=== PATIENT | female | born 1975 | race Caucasian/White ===

== ENCOUNTER 2021-11-07 06:21 | Day surgery (SDC) | payer MEDICARE, MEDICAID, SELFPAY ==
[2021-11-01 13:20] VITALS: BMI 25.8
--- NOTE | 2021-11-04 08:10 | MHC.SHP ---
Pre-Procedural Eval Section A Date of Service: 11/04/21 The patient is an INPATIENT: No Changes since office visit: No Cold of Flu in the past 2 weeks, No New Medical Problems, No Changes in Medication and No Patient answered all questions The History & Physical has been completed within 30 days and I have reviewed it.: Yes Section B Chief Complaint: Age-related nuclear cataract, left eye Allergies: Allergies Allergy/AdvReac Type Severity Reaction Status Date / Time bee pollen [bee stings] Allergy Anaphylaxis Verified 11/01/21 13:16 latex Allergy Rash Verified 11/01/21 13:16 shellfish derived Allergy Anaphylaxis Verified 11/01/21 13:16 Plan Diagnosis/Plan: Unchanged I have reviewed the history and physical and performed a pertinent physical examination on my patient. No changes have occurred unless specified.
--- NOTE | 2021-11-04 11:30 | P.CONAN_ITS ---
Documented by User: Francesca Jauregui NP 11/04/21 11:31 HPI - Anesthesia Eval Consult details Narrative: 46yo F for Left Cataract Extraction IOL Insertion PCP cleared No previous cataract on record PMFSH Past Medical History Medical History Asthma Depression GERD (gastroesophageal reflux disease) Insulin dependent type 2 diabetes mellitus LEONARDO on CPAP Seizure Smoker Surgical History Surgical History History of tonsillectomy Hx of section Hx of cholecystectomy Social History Social History Are you a primary rn progressive care to a significant other at home: No Do you presently have visiting nurse or other home services: No Patient Tobacco Use Status: Current everyday Tobacco user Tobacco use type: Cigarette Cigarette Packs Per Day: 0.5 Cigarettes Per Day: 10.0 Years Smoked: 30 Smoked in Last 30 Days: Yes Patient Interested in Nicotine Replacement: Yes Patient Given Instructions on How to Stop Smoking: Yes Date Education Initiated: 11/01/21 Use of substances other than those prescribed or required for medical reasons: No Have you been hit, kicked, punched, or otherwise hurt by someone within the past year? If so, by whom?: No Are you DNR?: No Advance Directives: No Advance Directives Information Provided: Yes Advance Directives on File: No Recently lost weight without trying: No Eating poorly because of decreased appetite: No Nutrition Risks: No Nutritional Risk Patient : No : No Poor oral hygiene: Yes (Upper dentures) Meds Allergies Allergy/AdvReac Type Severity Reaction Status Date / Time bee pollen [bee stings] Allergy Anaphylaxis Verified 11/01/21 13:16 latex Allergy Rash Verified 11/01/21 13:16 shellfish derived Allergy Anaphylaxis Verified 11/01/21 13:16 Home Medications Medication Instructions Recorded Confirmed Last Taken Type albuterol sulfate 2.5 mg/3 mL 1 vial inhalation DAILY 11/01/21 11/01/21 Unknown History (0.083 %) solution for nebulization albuterol sulfate 90 mcg/actuation 2 puff inhalation QID PRN wheezing 11/01/21 11/01/21 Unknown History aerosol inhaler atorvastatin 10 mg tablet 1 tab PO BEDTIME 11/01/21 11/01/21 Unknown History divalproex 500 mg tablet,extended 1 tab PO BID 11/01/21 11/01/21 Unknown History release 24 hr epinephrine 0.3 mg/0.3 mL ea IM DIRECTED 11/01/21 Unknown History injection, auto-injector fluoxetine 20 mg capsule 4 cap PO DAILY 11/01/21 11/01/21 Unknown History gabapentin 400 mg capsule 1 cap PO TID 11/01/21 11/01/21 Unknown History insulin aspart U-100 100 unit/mL 4 - 16 unit subcut TID 11/01/21 11/01/21 Unknown History (3 mL) subcutaneous pen (Novolog Flexpen U-100 Insulin aspart) insulin detemir U-100 100 unit/mL 56 unit subcut BEDTIME 11/01/21 11/01/21 Unknown History (3 mL) subcutaneous pen (Levemir FlexTouch U-100 Insulin) lisinopril 2.5 mg tablet 1 tab PO DAILY 11/01/21 11/01/21 Unknown History omeprazole 20 mg capsule,delayed 1 cap PO DAILY 11/01/21 11/01/21 Unknown History release risperidone 1 mg tablet 1 tab PO BEDTIME 11/01/21 11/01/21 Unknown History Exam Exam Date and Time: November 04, 2021 1130 Height,Weight and Vital Signs: Height 5 ft 6 in Weight 72.575 kg Assessment and Plan Assessment Anesthesia Assessment: Chart Reviewed Documented by User: Zoë Ko MD 11/07/21 07:31 [facility] Past Medical History Medical History Asthma Depression GERD (gastroesophageal reflux disease) Insulin dependent type 2 diabetes mellitus LEONARDO on CPAP Seizure Smoker Surgical History Surgical History History of tonsillectomy Hx of section Hx of cholecystectomy History of Problems with Anesthesia: No Social History Social History Are you a primary rn progressive care to a significant other at home: No Do you presently have visiting nurse or other home services: No Patient Tobacco Use Status: Current everyday Tobacco user Tobacco use type: Cigarette Cigarette Packs Per Day: 0.5 Cigarettes Per Day: 10.0 Years Smoked: 30 Smoked in Last 30 Days: Yes Patient Interested in Nicotine Replacement: Yes Patient Given Instructions on How to Stop Smoking: Yes Date Education Initiated: 11/01/21 Use of substances other than those prescribed or required for medical reasons: No Have you been hit, kicked, punched, or otherwise hurt by someone within the past year? If so, by whom?: No Are you DNR?: No Advance Directives: No Advance Directives Information Provided: Yes Advance Directives on File: No Recently lost weight without trying: No Eating poorly because of decreased appetite: No Nutrition Risks: No Nutritional Risk Patient : No : No Poor oral hygiene: Yes (Upper dentures) Meds Allergies Allergy/AdvReac Type Severity Reaction Status Date / Time bee pollen [bee stings] Allergy Anaphylaxis Verified 11/01/21 13:16 latex Allergy Rash Verified 11/01/21 13:16 shellfish derived Allergy Anaphylaxis Verified 11/01/21 13:16 Home Medications Medication Instructions Recorded Confirmed Last Taken Type albuterol sulfate 2.5 mg/3 mL 1 vial inhalation DAILY 11/01/21 11/01/21 Unknown History (0.083 %) solution for nebulization albuterol sulfate 90 mcg/actuation 2 puff inhalation QID PRN wheezing 11/01/21 11/01/21 Unknown History aerosol inhaler atorvastatin 10 mg tablet 1 tab PO BEDTIME 11/01/21 11/01/21 Unknown History divalproex 500 mg tablet,extended 1 tab PO BID 11/01/21 11/01/21 Unknown History release 24 hr epinephrine 0.3 mg/0.3 mL ea IM DIRECTED 11/01/21 Unknown History injection, auto-injector fluoxetine 20 mg capsule 4 cap PO DAILY 11/01/21 11/01/21 Unknown History gabapentin 400 mg capsule 1 cap PO TID 11/01/21 11/01/21 Unknown History insulin aspart U-100 100 unit/mL 4 - 16 unit subcut TID 11/01/21 11/01/21 Unknown History (3 mL) subcutaneous pen (Novolog Flexpen U-100 Insulin aspart) insulin detemir U-100 100 unit/mL 56 unit subcut BEDTIME 11/01/21 11/01/21 Unknown History (3 mL) subcutaneous pen (Levemir FlexTouch U-100 Insulin) lisinopril 2.5 mg tablet 1 tab PO DAILY 11/01/21 11/01/21 Unknown History omeprazole 20 mg capsule,delayed 1 cap PO DAILY 11/01/21 11/01/21 Unknown History release risperidone 1 mg tablet 1 tab PO BEDTIME 11/01/21 11/01/21 Unknown History Exam Airway Mallampati Class: II (Edentulous) TM Dist: >3cm Neck ROM: Full Loose/Missing/Broken Teeth: Yes, Upper and Lower Heart: RRR Lungs: CTA Assessment and Plan Final Anesthetic Review History of Problems with Anesthesia: No NPO: Yes ASA Class: III Final Preanesthetic Review: Meds/Allgs Chart Reviewed, Consent Obtained/Reviewed and Anes Risks/Benef Reviewed Patient Risk: Intermediate Procedure Risk: Low Anesthetic Plan Anesthetic Plan: MAC: Disposition: Standard PACU
[2021-11-07 06:37] VITALS: BP 119/76; PULSE 84; RESP 20; TEMP 36.1; O2SAT 95
[2021-11-07 06:47] LABS: Glucose, Whole Blood 238 mg/dL (60-115)
[2021-11-07] MEDS: Tetracaine HCl/PF 0.5% Oph Sol 4 ML DROPS 1 DROP EYE-LEFT (06:49)
[2021-11-07 06:50] LABS: UPreg QC Valid YES; Urine Pregnancy NEGATIVE (NEGATIVE)
[2021-11-07] MEDS: Lactated Ringers 500 ML 50 ML IV (06:51)
[2021-11-07] MEDS: Cyclopentolate 1 % Ophth Sol 2 ML DRPBTL 1 DROP EYE-LEFT ×3 (06:52→06:54)
[2021-11-07] MEDS: Tropicamide 1 % Ophth Sol 3 ML BTL 1 DROP EYE-LEFT ×3 (06:52→06:54)
[2021-11-07] MEDS: Phenylephrine HCL 2.5% Oph SoL 2 ML BOTTLE 1 DROP EYE-LEFT ×3 (06:52→06:54)
--- NOTE | 2021-11-07 07:47 | HO.PNOPHT ---
Ophthalmology Procedure Procedure Date of Service: 11/07/21 Ophthalmology Viscoelastic: Healgurwinder Duet Dual Pack Pro Ophthalmology Lenses: TECARMIDA [id number] (25) Procedure Notes: PREOPERATIVE DIAGNOSIS: Decreased visual acuity left eye secondary to cataract POSTOPERATIVE DIAGNOSIS: Same PROCEDURE: Left cataract extraction with intraocular lens insertion SURGEON: Ethan Acevedo M.D. ANESTHESIA: Topical/MAC ESTIMATED BLOOD LOSS: None COMPLICATIONS: None After obtaining informed consent, the patient was brought to the operation room suite and placed in the supine position. After adequate sedation per anesthesia, topical drops of Tetracaine were given to the left eye. The eye was then prepped and draped in the usual sterile fashion. The operating room microscope was then positioned over the operative eye and a lid speculum placed. A paracentesis was created. Viscoelastic was then instilled into the anterior chamber. A three plane incision was then created temporally, utilizing a 2.85 mm keratome. Capsulotomy forceps were then utilized to create a circular tear capsulotomy. Hydrodissection and hydrodelineation were carried out until adequate mobilization of the nucleus occurred. Phacoemulsification was then utilized to remove the dense central nucleus followed by removal of the cortical material utilizing the automated aspiration irrigation unit. Viscoat elastic was instilled into the posterior capsular bag followed by placement of a posterior chamber intraocular lens without difficulty. The residual Viscoat elastic was then removed utilizing the automated IA machine. The wound was check and found to be watertight. The patient tolerated the procedure well and the lid speculum was removed. Intracameral injection of Vigamox 0.1 mL followed by a subtenon injection of Kenalog-40 0.2 mL were administered. The patient will be seen in the a.m.
[2021-11-07 08:12] VITALS: BP 129/75; PULSE 89; RESP 18; TEMP 36.2; O2SAT 96
== END 2021-11-07 08:15 | disposition home or self-care (01) ==
PROVIDERS: Nurse Practitioner; PCP Internal Medicine; Visit Provider Ophthalmology
PROC: (CPT 66985; principal; 2021-11-07 07:50)
DX: H25.12 Age-related nuclear cataract, left eye (principal); H52.4 Presbyopia; D31.32 Benign neoplasm of left choroid; E78.00 Pure hypercholesterolemia, unspecified; G47.33 Obstructive sleep apnea (adult) (pediatric); F32.A Depression, unspecified; J45.909 Unspecified asthma, uncomplicated; R56.9 Unspecified convulsions; E11.9 Type 2 diabetes mellitus without complications; Z79.4 Long term (current) use of insulin; Z79.51 Long term (current) use of inhaled steroids; Z79.899 Other long term (current) drug therapy; F17.210 Nicotine dependence, cigarettes, uncomplicated
CPT/HCPCS: 66984; 81025; 82947; J2250; J2405; J3300; V2632

== ENCOUNTER 2021-11-28 06:03 | Day surgery (SDC) | payer MEDICARE, MEDICAID, SELFPAY ==
[2021-11-01 13:25] VITALS: BMI 25.8
--- NOTE | 2021-11-25 12:45 | MHC.SHP ---
Pre-Procedural Eval Section A Date of Service: 11/25/21 The patient is an INPATIENT: No Changes since office visit: No Cold of Flu in the past 2 weeks, No New Medical Problems, No Changes in Medication and No Patient answered all questions The History & Physical has been completed within 30 days and I have reviewed it.: Yes Section B Chief Complaint: Age-related nuclear cataract, right eye Allergies: Allergies Allergy/AdvReac Type Severity Reaction Status Date / Time bee pollen [bee stings] Allergy Anaphylaxis Verified 11/01/21 13:16 latex Allergy Rash Verified 11/01/21 13:16 shellfish derived Allergy Anaphylaxis Verified 11/01/21 13:16 Plan Diagnosis/Plan: Unchanged I have reviewed the history and physical and performed a pertinent physical examination on my patient. No changes have occurred unless specified.
[2021-11-28 06:33] VITALS: BP 104/76; PULSE 81; RESP 16; TEMP 36.2; O2SAT 97
[2021-11-28] MEDS: Tetracaine HCl/PF 0.5% Oph Sol 4 ML DROPS 1 DROP EYE-RIGHT (06:35)
[2021-11-28] MEDS: Tropicamide 1 % Ophth Sol 3 ML BTL 1 DROP EYE-RIGHT ×3 (06:38→06:58)
[2021-11-28] MEDS: Cyclopentolate 1 % Ophth Sol 2 ML DRPBTL 1 DROP EYE-RIGHT ×3 (06:38→06:56)
[2021-11-28 06:39] LABS: UPreg QC Valid YES; Urine Pregnancy NEGATIVE (NEGATIVE)
[2021-11-28 06:40] LABS: Glucose, Whole Blood 234 mg/dL (60-115)
[2021-11-28] MEDS: Phenylephrine HCL 2.5% Oph SoL 2 ML BOTTLE 1 DROP EYE-RIGHT ×3 (06:43→07:02)
[2021-11-28] MEDS: Lactated Ringers 500 ML 50 ML IVCONT (06:53)
--- NOTE | 2021-11-28 07:03 | PC.NURSE ---
lab drawn due to a faint pink line for her urine test. patient aware of the plan.
--- NOTE | 2021-11-28 07:09 | P.CONAN_ITS ---
HPI - Anesthesia Eval Consult details Narrative: right eye cataract [facility] Past Medical History Medical History Asthma Depression GERD (gastroesophageal reflux disease) Insulin dependent type 2 diabetes mellitus LEONARDO on CPAP Seizure Smoker Family History Family history of problems with anesthesia: No Surgical History Surgical History History of tonsillectomy Hx of section Hx of cholecystectomy History of Problems with Anesthesia: No Social History Social History Are you a primary lawn care professional to a significant other at home: No Do you presently have visiting nurse or other home services: No Patient Tobacco Use Status: Current everyday Tobacco user Tobacco use type: Cigarette Cigarette Packs Per Day: 0.5 Cigarettes Per Day: 10.0 Years Smoked: 30 Smoked in Last 30 Days: Yes Patient Interested in Nicotine Replacement: Yes Patient Given Instructions on How to Stop Smoking: Yes Date Education Initiated: 11/01/21 Use of substances other than those prescribed or required for medical reasons: No Have you been hit, kicked, punched, or otherwise hurt by someone within the past year? If so, by whom?: No Are you DNR?: No Advance Directives: No Advance Directives Information Provided: Yes Advance Directives on File: No Recently lost weight without trying: No Eating poorly because of decreased appetite: No Nutrition Risks: No Nutritional Risk Patient : No Poor oral hygiene: Yes (Full Upper) Meds Allergies Allergy/AdvReac Type Severity Reaction Status Date / Time bee pollen [bee stings] Allergy Anaphylaxis Verified 11/01/21 13:16 latex Allergy Rash Verified 11/01/21 13:16 shellfish derived Allergy Anaphylaxis Verified 11/01/21 13:16 Active Medications: Current Medications Povidone Iodine (Povidone Iodine 5 % Ophth Soln 30 Ml Bottle) 1 appl EYE-RIGHT PREOP PRN PRN Reason: Pre-Op Surgical Implant Prophy Home Medications Medication Instructions Recorded Confirmed Last Taken Type albuterol sulfate 2.5 mg/3 mL 1 vial inhalation DAILY 11/01/21 11/01/21 Unknown History (0.083 %) solution for nebulization albuterol sulfate 90 mcg/actuation 2 puff inhalation QID PRN wheezing 11/01/21 11/01/21 Unknown History aerosol inhaler atorvastatin 10 mg tablet 1 tab PO BEDTIME 11/01/21 11/01/21 Unknown History divalproex 500 mg tablet,extended 1 tab PO BID 11/01/21 11/01/21 Unknown History release 24 hr epinephrine 0.3 mg/0.3 mL ea IM DIRECTED 11/01/21 Unknown History injection, auto-injector fluoxetine 20 mg capsule 4 cap PO DAILY 11/01/21 11/01/21 Unknown History gabapentin 400 mg capsule 1 cap PO TID 11/01/21 11/01/21 Unknown History insulin aspart U-100 100 unit/mL 4 - 16 unit subcut TID 11/01/21 11/01/21 Unknown History (3 mL) subcutaneous pen (Novolog Flexpen U-100 Insulin aspart) insulin detemir U-100 100 unit/mL 56 unit subcut BEDTIME 11/01/21 11/01/21 Unknown History (3 mL) subcutaneous pen (Levemir FlexTouch U-100 Insulin) lisinopril 2.5 mg tablet 1 tab PO DAILY 11/01/21 11/01/21 Unknown History omeprazole 20 mg capsule,delayed 1 cap PO DAILY 11/01/21 11/01/21 Unknown History release risperidone 1 mg tablet 1 tab PO BEDTIME 11/01/21 11/01/21 Unknown History Exam Exam Date and Time: November 28, 2021 0709 Height,Weight and Vital Signs: Height 5 ft 6 in Weight 72.575 kg Last Vital Signs Temp 97.2 F 11/28/21 06:33 Pulse 81 11/28/21 06:33 Resp 16 11/28/21 06:33 BP 104/76 11/28/21 06:33 Pulse Ox 97 11/28/21 06:33 O2 Del Method 11/28/21 06:33 Pertinent Lab Results Pertinent Lab Results: Laboratory Tests 11/28/21 11/28/21 06:20 06:37 POC Glucose 234 H Urine Test NEGATIVE Airway Mallampati Class: II TM Dist: >3cm Neck ROM: Full Denture: Upper and Lower Loose/Missing/Broken Teeth: Yes Heart: rrr +[id number] Lungs: cta b/l Assessment and Plan Assessment Anesthesia Assessment: Anesthesia Plan Discussed and Chart Reviewed Final Anesthetic Review Family History of Problems with Anesthesia: No History of Problems with Anesthesia: No NPO: Yes ASA Class: III Final Preanesthetic Review: No Changes in Pt Med Stat, Meds/Allgs Chart Reviewed, Consent Obtained/Reviewed and Anes Risks/Benef Reviewed Patient Risk: Intermediate Procedure Risk: Low Assessment/Block/Sedation in SS: Assess/Block/Sedation-SS Anesthetic Plan Anesthetic Plan: MAC: and Agree w/ Assess. and Plan Disposition: Standard PACU
[2021-11-28 07:37] LABS: HCG Quantitative < 2 mIU/mL
--- NOTE | 2021-11-28 08:07 | HO.PNOPHT ---
Ophthalmology Procedure Procedure Date of Service: 11/28/21 Ophthalmology Viscoelastic: Healon Duet Dual Pack Pro Ophthalmology Lenses: TECNIS [id number] (25.5) Procedure Notes: PREOPERATIVE DIAGNOSIS: Decreased visual acuity right eye secondary to cataract POSTOPERATIVE DIAGNOSIS: Same PROCEDURE: Right cataract extraction with intraocular lens insertion SURGEON: Ethan Acevedo M.D. ANESTHESIA: Topical/MAC ESTIMATED BLOOD LOSS: None COMPLICATIONS: None After obtaining informed consent, the patient was brought to the operating room suite and placed in the supine position. After adequate sedation per anesthesia, topical drops of Tetracaine were given to the right eye. The eye was then prepped and draped in the usual sterile fashion. The operating room microscope was then positioned over the operative eye and a lid speculum placed. A paracentesis was created. Viscoelastic was then instilled into the anterior chamber. A three plane incision was then created temporally, utilizing a 2.85 mm keratome. Capsulotomy forceps were then utilized to create a circular tear capsulotomy. Hydrodissection and hydrodelineation were carried out until adequate mobilization of the nucleus occurred. Phacoemulsification was then utilized to remove the dense central nucleus followed by removal of the cortical material utilizing the automated aspiration irrigation unit. Viscoelastic was instilled into the posterior capsular bag followed by placement of a posterior chamber intraocular lens without difficulty. The residual Viscoelastic was then removed utilizing the automated IA machine. The wound was checked and found to be watertight. The patient tolerated the procedure well and the lid speculum was removed. Intracameral injection of Vigamox 0.1 mL followed by a subtenon injection of Kenalog-40 0.2 mL were administered. The patient will be seen in the a.m.
[2021-11-28 08:31] VITALS: BP 127/70; PULSE 84; RESP 16; TEMP 36.2; O2SAT 96
== END 2021-11-28 08:42 | disposition home or self-care (01) ==
PROVIDERS: Anesthesiology; PCP Internal Medicine; Visit Provider Ophthalmology
PROC: (CPT 66985; principal; 2021-11-28 08:00)
DX: H25.041 Posterior subcapsular polar age-related cataract, right eye (principal); E11.9 Type 2 diabetes mellitus without complications; J45.909 Unspecified asthma, uncomplicated; Z79.4 Long term (current) use of insulin; Z79.899 Other long term (current) drug therapy
CPT/HCPCS: 66984; 36415; 81025; 82947; 84702; J2250; J3010; J3300; V2632